=== PATIENT | male | born 1980 | race Caucasian/White ===

== ENCOUNTER 2018-03-09 19:20 | Inpatient (IN) | payer SELFPAY ==
[2018-03-09 21:08] LABS: Absolute Lymphocytes (CBC) 1.9 K/uL (0.7-4.9); Absolute Monocytes 0.9 K/uL (0.1-1.3); Absolute Neutrophil 8.1 K/uL (1.8-8.0); Basophils % 0.3 % (0-1.3); Eosinophils % 1.4 % (0-4.4); Hematocrit 36.8 % (39.6-49.0); MCH 30.9 pg (27.0-35.0); MCV 90.2 fL (80-100); MPV 8.7 fL (7.6-11.3); Monocytes % 7.8 % (3.3-12.3); RBC Red Blood Cell Count 4.08 M/uL (4.33-5.43)
[2018-03-09 21:17] LABS: Protime INR 1.08
--- NOTE | 2018-03-09 21:19 | RAD REPORT ---
EXAM DESCRIPTION: CT - Hand Right W Con - 03/09/2018 9:07 pm CLINICAL HISTORY: eval for foreign body and or abscess Pain and swelling COMPARISON: Hand Right 3 View dated 03/09/2018 FINDINGS: Prominent soft tissue swelling is seen along the ulnar aspect of the hand, particularly al abby the base of the proximal phalanx of the fifth finger. Subcutaneous edema is present in the region . Vague linear mildly radiopaque foreign bodies are seen along the dorsal soft tissues adjacent to th e proximal phalanx of the fifth finger, with extension of the foreign bodies into the fourth webspace . These have the appearance of small pieces of wood. No abscess identified. No fracture or dislocatio n. IMPRESSION: Multiple small linear foreign bodies are present in the region of the fourth webspace an d along the dorsal margin of the base of the fifth proximal phalanx. Adjacent soft tissues are edemat ous and thickened without abscess. All CT scans are performed using dose optimization technique as appropriate and may include automated exposure control or mA/KV adjustment according to patient size.
--- NOTE | 2018-03-09 21:22 | RAD REPORT ---
EXAM DESCRIPTION: RAD - Hand Right 3 View - 03/09/2018 8:43 pm CLINICAL HISTORY: puncture wound base of 5th MCP;Pain;Swelling COMPARISON: None FINDINGS: Soft tissue swelling is seen along the dorsum of the hand at the level of the metacarpals. No fracture or dislocation is seen. No radiopaque foreign body seen.
[2018-03-09] MEDS ORDERED: VANCOMYCIN 1 GM/250 ML BAG ONE (21:31)
[2018-03-09] MEDS ORDERED: PIPER/TAZO/NS 3.375gm 3.375 GM/100 ML BAG ONE (21:31)
--- NOTE | 2018-03-09 21:48 | ER ---
Nurse's Notes [facility] Name: Kamari Carrizales Age: 38 yrs Sex: Male : 1980 Arrival Date: 03/09/2018 Time: 19:23 Bed 15 Private MD: Diagnosis: Foreign bodies of right hand;Right hand cellulitis Presentation: 03/09 19:27 Presenting complaint: Patient states: RIGHT hand pain/swelling, yesterday a chunk of dm5 wood splintered into hand, increasing pain and swelling today. Transition of care: patient was not received from another setting of care. Onset of symptoms was March 07, 2018. Risk Assessment: Do you want to hurt yourself or someone else? Patient reports no desire to harm self or others. Initial Sepsis Screen: Does the patient meet any 2 criteria? No. Patient's initial sepsis screen is negative. Does the patient have a suspected source of infection? No. Patient's initial sepsis screen is negative. Care prior to arrival: None. 19:27 Method Of Arrival: Ambulatory 5 19:27 Acuity: RUDY 3 dm5 Triage Assessment: 19:29 General: Appears uncomfortable, Behavior is calm. Pain: Complains of pain in right hand dm5 Pain currently is 10 out of 10 on a pain scale. Neuro: Level of Consciousness is awake, alert, obeys commands, Oriented to person, place, time, situation. Cardiovascular: Patient's skin is warm and dry. Respiratory: Respiratory effort is even, unlabored, Respiratory pattern is regular, symmetrical. Musculoskeletal: Reports pain in right hand. Injury Description: Foreign body. Historical: - Allergies: 19:29 No Known Allergies; dm5 - Home Meds: 19:29 None [Active]; dm5 - PMHx: 19:29 None; dm5 - PSHx: 19:29 Collar bone, hip and shattered femur; dm5 - Immunization history:: Last tetanus immunization: < 10 years ago. - Social history:: Smoking status: Patient uses tobacco products, smokes one-half pack cigarettes per day. - Ebola Screening: : Patient negative for fever greater than or equal to 101.5 degrees Fahrenheit, and additional compatible Ebola Virus Disease symptoms. - Family history:: not pertinent. - Hospitalizations: : No recent hospitalization is reported. Screenin:01 Abuse screen: Denies threats or abuse. Denies injuries from another. Nutritional bs1 screening: No deficits noted. Tuberculosis screening: No symptoms or risk factors identified. Fall Risk None identified. Assessment: 19:55 General: Appears in no apparent distress. uncomfortable, Behavior is cooperative, bs1 anxious. Pain: Complains of pain in right hand. Neuro: Level of Consciousness is awake, alert, obeys commands, Oriented to person, place, time, situation, Appropriate for age. Cardiovascular: Heart tones S1 S2 present Capillary refill < 3 seconds Patient's skin is warm and dry. Respiratory: Airway is patent Breath sounds are clear bilaterally. GI: No signs and/or symptoms were reported involving the gastrointestinal system. : No signs and/or symptoms were reported regarding the genitourinary system. EENT: No signs and/or symptoms were reported regarding the EENT system. Derm: Skin has skin tears on side on right hand,puncture site from wood Skin is red. Musculoskeletal: Circulation, motion, and sensation intact. Capillary refill < 3 seconds, Range of motion: limited in right hand Swelling present in right hand. 21:30 Reassessment: Patient appears in no apparent distress at this time. Patient and/or bs1 family updated on plan of care and expected duration. Pain level reassessed. Patient is alert, oriented x 3, equal unlabored respirations, skin warm/dry/pink. Informed patient of pending lab work/xrays. 23:00 Reassessment: Patient appears in no apparent distress at this time. Patient and/or bs1 family updated on plan of care and expected duration. Pain level reassessed. Patient is alert, oriented x 3, equal unlabored respirations, skin warm/dry/pink. 03/10 00:00 Reassessment: Report called to 2nd floor. Patient states understanding of instructions. bs1 Vital Signs: 03/09 19:29 BP 93 / 73; Pulse 92; Resp 18; Temp 98.1; Pulse Ox 100% ; Weight 83.91 kg; Height 6 ft. dm5 1 in. (185.42 cm); Pain 10/10; 21:00 BP 111 / 68; Pulse 92; Resp 17; Pulse Ox 100% on R/A; bs1 22:00 BP 115 / 76; Pulse 88; Resp 17; Pulse Ox 99% on R/A; bs1 23:00 BP 110 / 73; Pulse 92; Resp 17; Pulse Ox 100% on R/A; bs1 03/10 00:00 BP 108 / 72; Pulse 88; Resp 16; Temp 98(O); Pulse Ox 99% on R/A; Pain 6/10; bs1 03/09 19:29 Body Mass Index 24.41 (83.91 kg, 185.42 cm) dm5 ED Course: 03/09 19:23 Patient arrived in ED. es 19:29 Triage completed. dm5 19:29 Arm band placed on. dm5 19:50 Yobany Jimenez, RN is Primary Nurse. sr5 19:50 Moshe Michael NP is PHCP. pm1 19:51 Madhu Rojas MD is Attending Physician. pm1 20:02 Madhu Rojas MD is Attending Physician. rn 20:29 Tamika Jalloh RN is Primary Nurse. bs1 20:33 X-ray completed. Portable x-ray completed in exam room. Patient tolerated procedure la2 well. 20:43 XRAY Hand RIGHT 3 View In Process Unspecified. EDMS 20:50 Inserted saline lock: 20 gauge in right antecubital area, using aseptic technique. bs1 Blood collected. by me. Flushed with 10cc NS. 20:50 No provider procedures requiring assistance completed. bs1 21:07 CT completed. Patient tolerated procedure well. Patient moved back from CT. kw1 21:07 Hand Right W Con In Process Unspecified. EDMS 21:15 First set of blood cultures drawn by me, Second set of blood cultures drawn by me. bs1 21:47 Roman Solis MD is Hospitalizing Provider. rn 23:01 Patient has correct armband on for positive identification. Bed in low position. Call bs1 light in reach. Side rails up X 1. Pulse ox on. NIBP on. Warm blanket given. 03/10 00:31 Patient admitted, IV remains in place. intact. bs1 Administered Medications: 03/09 21:44 Drug: Zosyn 3.375 grams Route: IVPB; Infused Over: 60 mins; Site: left antecubital; bs1 03/10 00:32 Follow up: IV Status: Completed infusion bs1 03/09 22:34 Drug: vancoMYCIN 1 grams Route: IVPB; Infused Over: 2 hrs; Site: left antecubital; bs1 03/10 00:32 Follow up: IV Status: Completed infusion bs1 Outcome: 03/09 21:48 Decision to Hospitalize by Provider. rn 03/10 00:31 Admitted to Med/surg accompanied by tech, via wheelchair, room 214, with chart, Report bs1 called to [facility] [place] Condition: stable Instructed on the need for admit, Demonstrated understanding of instructions. 00:35 Patient left the ED. bs1 Signatures: Dispatcher [facility] Poornima Zamora, ES RN dm5 Bridgett Samayoa Roman, MD MD rn Marinas, Patrick, LANDSCAPE GARDENER LANDSCAPE GARDENER pm1 Yobany Jimenez RN RN sr5 Conchita Cobb Kimberly 1 Tamika Jalloh RN RN bs1
--- NOTE | 2018-03-09 21:48 | EDPHYS ---
Physician Documentation [facility] Name: Kamari Carrizales Age: 38 yrs Sex: Male : 1980 Arrival Date: 03/09/2018 Time: 19:23 Bed 15 Private MD: ED Physician Madhu Rojas HPI: 03/09 20:11 This 38 yrs old Male presents to ER via Ambulatory with complaints of Hand rn Injury. 20:11 The patient or guardian reports injury, pain, a puncture wound, swelling, tenderness. rn The complaints affect the right hand diffusely. Context: The problem was sustained outdoors, resulted from a penetrating injury. Onset: The symptoms/episode began/occurred yesterday. Modifying factors: The symptoms are alleviated by nothing, the symptoms are aggravated by movement. Severity of symptoms: At their worst the symptoms were moderate, in the emergency department the symptoms are unchanged. The patient has not experienced similar symptoms in the past. Reports stuck in right hand with rotted wood, yesterday, more swollen today, unsure if got all of wood out, + swelling and redness, hurts to touch and move hand, majority of pain is located at base of 5th MCP and hypothenar eminence. Historical: - Allergies: 19:29 No Known Allergies; dm5 - Home Meds: 19:29 None [Active]; dm5 - PMHx: 19:29 None; dm5 - PSHx: 19:29 Collar bone, hip and shattered femur; dm5 - Immunization history:: Last tetanus immunization: < 10 years ago. - Social history:: Smoking status: Patient uses tobacco products, smokes one-half pack cigarettes per day. - Ebola Screening: : Patient negative for fever greater than or equal to 101.5 degrees Fahrenheit, and additional compatible Ebola Virus Disease symptoms. - Family history:: not pertinent. - Hospitalizations: : No recent hospitalization is reported. ROS: 20:11 Constitutional: Negative for fever, chills, and weight loss, MS/Extremity: + rn penetrating injury right hand with swelling Neuro: Negative for headache, weakness, numbness, tingling, and seizure. Exam: 20:11 Constitutional: This is a well developed, well nourished patient who is awake, alert, rn appears anxious MS/ Extremity: Pulses equal, no cyanosis. Right hand 50% larger than left hand with swelling and warmth of hypothenar eminence and evidence of small puncture wound proximal phalange of 5th digit, old injury to right 5th PIP that results in limited ROM prior to this incident, no obvious fluctuance, siginificant pain with ROM. Minimal pain and warmth at base of right hand, no streaking up right arm. Vital Signs: 19:29 BP 93 / 73; Pulse 92; Resp 18; Temp 98.1; Pulse Ox 100% ; Weight 83.91 kg; Height 6 ft. dm5 1 in. (185.42 cm); Pain 10/10; 21:00 BP 111 / 68; Pulse 92; Resp 17; Pulse Ox 100% on R/A; bs1 22:00 BP 115 / 76; Pulse 88; Resp 17; Pulse Ox 99% on R/A; bs1 23:00 BP 110 / 73; Pulse 92; Resp 17; Pulse Ox 100% on R/A; bs1 03/10 00:00 BP 108 / 72; Pulse 88; Resp 16; Temp 98(O); Pulse Ox 99% on R/A; Pain 6/10; bs1 03/09 19:29 Body Mass Index 24.41 (83.91 kg, 185.42 cm) dm5 MDM: 03/09 19:51 Patient medically screened. pm1 21:44 Differential diagnosis: cellulitis, hand foreign body. Data reviewed: vital signs, rn nurses notes, radiologic studies, CT scan, plain films, and as a result, I will admit patient. Counseling: I had a detailed discussion with the patient and/or guardian regarding: the historical points, exam findings, and any diagnostic results supporting the discharge/admit diagnosis, lab results, radiology results, the need for further work-up and treatment in the hospital. Response to treatment: the patient's symptoms have mildly improved after treatment, and as a result, I will admit patient. Admission orders: after a detailed discussion of the patient's condition and case, the admit orders are written by me. ED course: Spoke with Dr. Del Rio, agrees to see pt in AM, wants pt NPO after midnight, patient angry and does not want to stay, I convinced him to stay. . 03/09 20:09 Order name: CBC with Diff rn 03/09 20:09 Order name: Basic Metabolic Panel rn 03/09 20:09 Order name: Protime (+inr); Complete Time: 21:26 rn 03/09 20:09 Order name: Ptt, Activated; Complete Time: 21:26 rn 03/09 20:09 Order name: Procalcitonin rn 03/09 20:09 Order name: Blood Culture Adult (2) rn 03/09 20:09 Order name: IV Start; Complete Time: 21:38 rn 03/09 20:09 Order name: XRAY Hand RIGHT 3 View; Complete Time: 21:26 rn 03/09 20:10 Order name: CBC with Automated Diff; Complete Time: 21:16 EDMS 03/09 20:14 Order name: Hand Right W Con; Complete Time: 21:26 EDMS Administered Medications: 21:44 Drug: Zosyn 3.375 grams Route: IVPB; Infused Over: 60 mins; Site: left antecubital; bs1 03/10 00:32 Follow up: IV Status: Completed infusion bs1 03/09 22:34 Drug: vancoMYCIN 1 grams Route: IVPB; Infused Over: 2 hrs; Site: left antecubital; bs1 03/10 00:32 Follow up: IV Status: Completed infusion bs1 Disposition: 03/09/18 21:48 Hospitalization ordered by Roman Solis for Inpatient Admission. Preliminary diagnosis are Foreign bodies of right hand, Right hand cellulitis. - Bed requested for Telemetry/MedSurg (Inpatient). - Status is Inpatient Admission. bs1 - Condition is Stable. - Problem is new. - Symptoms have improved. UTI on Admission? No Signatures: Dispatcher [employer] EDMS Sandy Manzo RN RN kl Markwardt, Deana RN RN dm5 Madhu Rojas MD MD rn Marinas, Patrick, DEVELOPMENT MECHANIC DEVELOPMENT MECHANIC pm1 Tamika Jalloh RN RN bs1 Corrections: (The following items were deleted from the chart) 03/09 22:54 21:48 Hospitalization Ordered by Roman Solis MD for Inpatient Admission. Preliminary kl diagnosis is Foreign bodies of right hand; Right hand cellulitis. Bed requested for Telemetry/MedSurg (Inpatient). Status is Inpatient Admission. Condition is Stable. Problem is new. Symptoms have improved. UTI on Admission? No. rn 03/10 00:35 03/09 22:54 03/09/2018 21:48 Hospitalization Ordered by Roman Solis MD for Inpatient bs1 Admission. Preliminary diagnosis is Foreign bodies of right hand; Right hand cellulitis. Bed requested for Telemetry/MedSurg (Inpatient). Status is Inpatient Admission. Condition is Stable. Problem is new. Symptoms have improved. UTI on Admission? No. kl
[2018-03-09 21:55] LABS: BUN Blood Urea Nitrogen 16 mg/dL (7-18); Bicarbonate 33 mmol/L (21-32); Glucose Level 83 mg/dL (74-106); Sodium Level 139 mmol/L (136-145)
--- NOTE | 2018-03-09 23:22 | P.HP ---
Certification for Inpatient Patient admitted to: Inpatient With expected LOS: >2 Midnights Practitioner: I am a practitioner with admitting privileges, knowledge of patient current condition, hospital course, and medical plan of care. Services: Services provided to patient in accordance with Admission requirements found in Title 42 Section 412.3 of the Code of Federal Regulations Patient History Date of Service: 03/09/18 Reason for admission: right hand foreign body History of Present Illness: Mr Carrizales is a 2-year-old male with a pretty denied past medical history except for tobacco abuse, he smoked about 2 packs per day for a long time. The patient had a wound his right hand with a roosted wood, which penetrated treat the 4th and 5th finger web. Subsequently, his right hand become more swollen, painful and warmth. In the ER workup lab work was remarkable for mild leukocytosis 11.0 K, with normal procalcitonin. CT scan of the head was remarkable for multiple wood foreign bodies are located between fourth and fifth finger webs. No history of fever or chills. Allergies No Known Allergies Allergy (Unverified 03/09/18 20:12) Home medications list reviewed: Yes - Social History Smoking Status: Current every day smoker Counseled patient to stop smoking for: less than 10 minutes Smoking therapy provided: Yes Patient receptive to therapy: No CD- Drugs: No Place of Residence: Home Review of Systems 10-point ROS is otherwise unremarkable Physical Examination - Physical Exam General: Alert, In no apparent distress HEENT: Atraumatic, PERRLA, Mucous membr. moist/pink, EOMI, Sclerae nonicteric Neck: Supple, 2+ carotid pulse no bruit, No LAD, Without JVD or thyroid abnormality Respiratory: Clear to auscultation bilaterally, Normal air movement Cardiovascular: Regular rate/rhythm, Normal S1 S2 Gastrointestinal: Normal bowel sounds, No tenderness Musculoskeletal: No tenderness Integumentary: No rashes, Skin lesion (Right hand), Tenderness/swelling (Right hand), Warmth (Right hand) Neurological: Normal gait, Normal speech, Normal strength at 5/5 x4 extr, Normal tone, Normal affect Lymphatics: No axilla or inguinal lymphadenopathy - Studies Laboratory Data (last 24 hrs) 03/09/18 20:50: PT 12.7 H, INR 1.08, APTT 28.1 03/09/18 20:50: Sodium 139, Potassium 3.0 L, BUN 16, Creatinine 0.88, Glucose 83 03/09/18 20:50: WBC 11.0 H, Hgb 12.6 L, Hct 36.8 L, Plt Count 213 Assessment and Plan - Problems (Diagnosis) (1) Tobacco abuse Current Visit: Yes Status: Acute (2) Foreign body Current Visit: Yes Status: Acute - Plan The patient will be admitted to the hospital in order to proceed with foreign body removal. Dr Del Rio with stated patient to OR to more the morning. Will keep NPO start, empiric antibiotic. - Advance Directives Does patient have a Living Will: No Does patient have a Durable POA for Healthcare: No - Code Status/Comfort Care Code Status Assessed: Yes Code Status: Full Code
[2018-03-10] MEDS ORDERED: Levofloxacin 750mg IV 750 MG/150 ML BAG IV SCH (00:39)
[2018-03-10] MEDS ORDERED: IPRATROPIUM BROM 0.5MG/2.5ML NEB PRN (00:39)
[2018-03-10] MEDS ORDERED: ONDANSETRON 4 MG/2 ML VIAL IV PRN (00:39)
[2018-03-10] MEDS ORDERED: ALBUTEROL 2.5 MG/3 ML NEB SOL NEB PRN (00:39)
[2018-03-10] MEDS: NA CHLORIDE 0.9% 1,000 ML IV SCH ×3 (02:15→20:39)
[2018-03-10] MEDS: MORPHINE 2 MG/ML SYR IV PRN ×2 (02:31→20:38)
[2018-03-10 05:37] LABS: Absolute Monocytes 0.9 K/uL (0.1-1.3); Absolute Neutrophil 6.6 K/uL (1.8-8.0); Basophils % 0.5 % (0-1.3); Eosinophils % 1.5 % (0-4.4); Hematocrit 33.1 % (39.6-49.0); Lymphocytes % 20.7 % (15.3-44.8); MCH 31.3 pg (27.0-35.0); MCV 89.1 fL (80-100); MPV 8.9 fL (7.6-11.3); Monocytes % 8.9 % (3.3-12.3); RBC Red Blood Cell Count 3.72 M/uL (4.33-5.43)
[2018-03-10 05:44] LABS: BUN Blood Urea Nitrogen 16 mg/dL (7-18); Bicarbonate 31 mmol/L (21-32); Glucose Level 100 mg/dL (74-106); Magnesium 1.6 mg/dL (1.8-2.4); Potassium 3.1 mmol/L (3.5-5.1); Sodium Level 139 mmol/L (136-145)
[2018-03-10] MEDS ORDERED: MAGNESIUM SULFATE 1 gm IVPB 1 GM/100 ML BAG IV ONE (05:53)
[2018-03-10] MEDS: KCL 20 MEQ/100 mL IVPB 20 MEQ/100 ML BAG IV SCH ×3 (06:31→08:56)
[2018-03-10] MEDS ORDERED: VANCOMYCIN 1.25 GM in NA CHLORIDE 0.9% 500 ML IVPB SCH (09:00)
[2018-03-10] MEDS ORDERED: POTASSIUM 25 MEQ EFFERV TAB PO ONE (13:14)
[2018-03-10] MEDS: PIPER/TAZO/NS 3.375gm 3.375 GM/100 ML BAG IV SCH ×2 (13:42→20:34)
--- NOTE | 2018-03-10 19:13 | PN ---
Date of Progress Note: 03/10/2018 Subjective: The patient is seen and examined. Chart reviewed and case discussed with Dr. Del Rio and RN. The patient seemed to be very somnolent and drowsy. States he has pain in his right hand. Review of Systems: Negative except as above. Medications: List reviewed. Physical Examination: Vital Signs: Temperature 98.2, heart rate 71, blood pressure 104/69, respirations 20, O2 94% on room air. General: Awake, alert, oriented x3, in some mild distress due to pain. Ill-appearing male. CV: S1, S2. No murmurs. Regular rate and rhythm. Peripheral pulses present. Respiratory: Moving air well bilaterally. No wheezing. Gastrointestinal: Abdomen is soft, nontender, nondistended. Positive bowel sounds. Extremities: No clubbing, cyanosis. The patient does have edema of the right hand. Neurologic: Nonfocal. Laboratory Data: Sodium 139, potassium 3.1, chloride 103, CO2 31, BUN 16, creatinine 0.8, glucose 10 0, calcium 8.2, magnesium 1.6. WBC 9.7, H and H 11.6 and 33.1, platelets 187, neutrophils 68.4%. Bl ood cultures pending. CT scan of the hand shows multiple small linear foreign bodies in the region o f the fourth web space along the dorsal margin of the base of the fifth proximal phalanx edema and th ickening without abscess. Hand x-ray personally reviewed shows soft tissue swelling along with dorsu m of the hand, level of metacarpals. No fracture or dislocation. Assessment And Plan: A 38-year-old male with: 1.Right hand foreign body. The patient has received a tetanus shot. We will need surgical treatmen t and removal of foreign bodies. Dr. Del Rio has been consulted. The patient to go for surgery in a.m. Surgery was delayed today due to the patient's change in mental status, appears to be very jaziel nolent. We will obtain UDS. 2.Nicotine dependence with cigarette smoking, counseled. 3.Somnolence, unclear etiology. We will check UDS. No signs of sepsis. White count has normalized . Procalcitonin negative. Plan: Continue with IV antibiotics. We will change Levaquin to Zosyn for anaerobic coverage. Follo w up blood cultures. Anticipate surgery in a.m. SA/VANDANA Voice ID: [id number] Report ID: [id number]
[2018-03-10] MEDS: VANCOMYCIN 1.25 GM in NA CHLORIDE 0.9% 250 ML IVPB SCH (20:34)
[2018-03-10 23:52] LABS: Barbiturates NEGATIVE (NEGATIVE); Benzodiazepines NEGATIVE (NEGATIVE); Cocaine NEGATIVE (NEGATIVE); METHAMPHETAM POSITIVE (NEGATIVE); Methadone NEGATIVE (NEGATIVE); Opiates NEGATIVE (NEGATIVE); Phencyclidine NEGATIVE (NEGATIVE); THC Cannibis NEGATIVE (NEGATIVE)
[2018-03-11] MEDS: PIPER/TAZO/NS 3.375gm 3.375 GM/100 ML BAG IV SCH ×3 (05:28→20:34)
[2018-03-11] MEDS: NA CHLORIDE 0.9% 1,000 ML IV SCH ×2 (05:49→16:39)
[2018-03-11] MEDS: VANCOMYCIN 1.25 GM in NA CHLORIDE 0.9% 250 ML IVPB SCH (08:38)
[2018-03-11] MEDS ORDERED: MIDAZOLAM HCL 2 MG/2 ML INJ ONE (09:07)
[2018-03-11] MEDS ORDERED: PROPOFOL 200 MG/20 ML VIAL IV ONE (09:07)
[2018-03-11] MEDS ORDERED: Ringers Lactate 1,000 ML IV ONE (09:07)
[2018-03-11] MEDS ORDERED: KETOROLAC 30 MG/ML INJ ONE (09:07)
[2018-03-11] MEDS ORDERED: FENTANYL CITR 100 MCG/2 ML ONE (09:07)
[2018-03-11] MEDS ORDERED: ONDANSETRON HCL 40 MG/20 ML VIAL ONE (10:01)
[2018-03-11 10:15] LABS: BUN Blood Urea Nitrogen 10 mg/dL (7-18); Bicarbonate 31 mmol/L (21-32); Glucose Level 97 mg/dL (74-106); Magnesium 1.9 mg/dL (1.8-2.4); Potassium 3.5 mmol/L (3.5-5.1); Sodium Level 136 mmol/L (136-145)
[2018-03-11 10:17] LABS: Absolute Lymphocytes (CBC) 1.4 K/uL (0.7-4.9); Absolute Monocytes 0.7 K/uL (0.1-1.3); Absolute Neutrophil 7.8 K/uL (1.8-8.0); Basophils % 0.4 % (0-1.3); Hematocrit 33.4 % (39.6-49.0); Lymphocytes % 13.7 % (15.3-44.8); MCH 30.8 pg (27.0-35.0); MPV 8.9 fL (7.6-11.3); Monocytes % 6.9 % (3.3-12.3); RBC Red Blood Cell Count 3.71 M/uL (4.33-5.43)
[2018-03-11] MEDS: VANCOMYCIN 1.5 GM in NA CHLORIDE 0.9% 500 ML IVPB SCH (20:34)
--- NOTE | 2018-03-11 20:46 | PN ---
Date of Progress Note: 03/11/2018 Subjective: Chart reviewed and case discussed with RN. The patient did well postoperatively, went f or surgery by Dr. Del Rio for his hand. Review of Systems: Negative except as above. Medications: List reviewed. Objective: Vital Signs: Temperature 97.9, heart rate 62, blood pressure 110/67, respirations 18, O2 96% on room air. General: Awake, alert, oriented x3. Some mild distress. CV: S1, S2. No murmurs. Respiratory: Moving air well bilaterally Gastrointestinal: Abdomen is soft, nontender, nondistended . Positive bowel sounds. Extremities: No clubbing, cyanosis. Right hand swelling. Skin: Right hand bandaged. Neurologic: Nonfocal. Sensation intact to light touch. Laboratory Data: Sodium 136, potassium 3.5, chloride 100, CO2 31, BUN 10, creatinine 0.7, glucose 97 , calcium 8.4, magnesium 1.9. WBC 10, H and H 11.4, 33.4, platelets 195, neutrophils 78%. UDS posit ross for amphetamines. Blood cultures pending. Blood cultures, no growth to date. Wound cultures, p ending. Assessment And Plan: A 38-year-old male with: 1.Right hand foreign body, status post surgical removal of foreign body. Appreciate Dr. Del Rio's input. We will continue with IV antibiotics and follow up on cultures. Blood cultures, no growth t o date. Wound cultures, pending. 2.Nicotine dependence with cigarette smoking. Counseled. 3.Amphetamine abuse, counseled. Please note that the patient stated that he wished to leave. I exp lained to him that he needs to continue with IV antibiotics and he needs to have wound closure on Vicky rsday by Dr. Del Rio. He is to be observed in the hospital setting as his cultures are pending at this time. He mentioned that he is unable to pay for his daughter's baby-sitting and I explained to him that he may need to make other arrangements as leaving the hospital against medical advice is obv iously not advised. It will result in worsening condition of his hand as this is his dominant hand. If he leaves without treatment, he may not be able to heal properly and may result in permanent nikunj ge or loss to the function of his hand, may even result in sepsis and possibly . He voiced unde rstanding and at this point, agrees to stay in the hospital. ERNESTINE Voice ID: [id number] Report ID: [id number]
--- NOTE | 2018-03-11 21:47 | OP ---
Surgeon: Darion Del Rio MD Preoperative Diagnosis: Infected right hand with foreign body. Postoperative Diagnosis: Infected right hand with foreign body. Procedure Performed: Debridement of skin and subcutaneous tissue, incision and drainage of abscess, removal of foreign bodies. Anesthesia: General. Procedure In Detail: After satisfactory induction of general anesthesia, the right arm was prepped w ith Betadine scrub, Betadine paint, dry sterile drapes applied in usual manner. The arm was elevated and exsanguinated with an Esmarch. Tourniquet was inflated to 250 mmHg. The hand was placed on Rot jonathon table. Elliptical incision was made over the metacarpal head on the ulnar aspect of the 5th met acarpal. Pus was encountered. Cultures were taken of the pus. Then, a zigzag incision was made ove r the dorsum extending to the web between the fourth and fifth digits. Foreign bodies were encounter ed which were brown black wood, multiple fragments. Total weight of these fragments was about 5 g. The wounds were then jet lavage irrigated with 3 L of dilute Betadine solution. Tourniquet released. Electrocautery was used for hemostasis. Wound packed with Nu Gauze quarter-inch, 2-inch Apple and Kerlix. The patient tolerated the procedure well and returned to Recovery. FABIAN/VANDANA Voice ID: [id number] Report ID: [id number]
[2018-03-12] MEDS: NA CHLORIDE 0.9% 1,000 ML IV SCH (02:39)
[2018-03-12] MEDS: PIPER/TAZO/NS 3.375gm 3.375 GM/100 ML BAG IV SCH ×3 (05:25→20:55)
[2018-03-12] MEDS ORDERED: POTASSIUM CL SA 10 MEQ TAB PO ONE (09:00)
[2018-03-12] MEDS: VANCOMYCIN 1.5 GM in NA CHLORIDE 0.9% 500 ML IVPB SCH ×2 (09:55→20:54)
--- NOTE | 2018-03-12 18:16 | PN ---
Date of Progress Note: 03/12/2018 Subjective: The patient is seen and examined. Chart reviewed and case discussed with RN. The patie nt doing well. Wants to go downstairs and smoke. I counseled the patient extensively regarding smok ing cessation. He does not believe that there is any effect of smoking to his healing or his surgery . Review of Systems: Negative except as above. Medications: List reviewed. Physical Examination: Vital Signs: Temperature 97.6, heart rate 84, blood pressure 108/61, respirations 18, O2 96% on room air. General: Awake, alert, oriented x3, not in any acute distress. CV: S1, S2. No murmurs. Regular rate and rhythm. Peripheral pulses present. Respiratory: Moving air well bilaterally. No wheezing. Gastrointestinal: Abdomen is soft, nontender, nondistended. Positive bowel sounds. Extremities: No clubbing, cyanosis, edema. Neuro: Nonfocal. Laboratory Data: Microbiology, blood cultures no growth to date. Wound cultures pending. Assessment And Plan: A 38-year-old male with: 1.Right hand foreign body, status post incision and drainage and removal of foreign bodies. The pat ient is going back for closure tomorrow by Dr. Del Rio. 2.Cellulitis of the right hand. Continue antibiotics. Blood cultures negative. Wound cultures pen ding. 3.Nicotine dependence with cigarette smoking. The patient was counseled extensively. He does not u nderstand, not ready to quit, wants to go downstairs and smoke. 4.Amphetamine abuse, counseled. Plan: Continue antibiotics. Return to OR tomorrow. /MODL Voice ID: [id number] Report ID: [id number]
[2018-03-12] MEDS ORDERED: CODEINE 30MG/APAP 300MG TAB PO PRN (21:14)
[2018-03-12] MEDS: MORPHINE 2 MG/ML SYR IV PRN (22:46)
[2018-03-13] MEDS: PIPER/TAZO/NS 3.375gm 3.375 GM/100 ML BAG IV SCH (05:59)
[2018-03-13] MEDS ORDERED: PROPOFOL 200 MG/20 ML VIAL IV ONE (08:46)
[2018-03-13] MEDS ORDERED: FENTANYL CITR 100 MCG/2 ML ONE (08:47)
[2018-03-13] MEDS ORDERED: MIDAZOLAM HCL 2 MG/2 ML INJ ONE (08:47)
[2018-03-13] MEDS ORDERED: ONDANSETRON HCL 40 MG/20 ML VIAL ONE (08:47)
[2018-03-13] MEDS: VANCOMYCIN 1.5 GM in NA CHLORIDE 0.9% 500 ML IVPB SCH (09:00)
--- NOTE | 2018-03-14 07:26 | DS ---
Date of Discharge: 03/13/2018 Consultants: Dr. Del Rio with Plastic Surgery. Procedures: On 03/11/2018, debridement of skin and subcutaneous tissue, incision and drainage of abs cess, removal of foreign bodies of right hand. Admitting Diagnoses: 1.Foreign body in the right hand. 2.Cellulitis and infection of the right hand secondary to foreign body. 3.Nicotine dependence with cigarette smoking. Discharge Diagnoses: 1.Right hand foreign body, status post incision and drainage and removal of foreign bodies. 2.Cellulitis of the right hand. 3.Nicotine dependence with cigarette smoking, counseled. 4.Amphetamine abuse, counseled. Hospital Course: The patient is a 38-year-old male with no significant past medical history, comes i nto the hospital with foreign body doing work related accident. The patient came in for further eval uation and treatment. He was started on IV antibiotics. He did have some mild leukocytosis. CT sca n of the hand was done which showed multiple wood foreign bodies between the fourth and fifth finger webs. Dr. Del Rio was consulted and the patient was taken to the OR for above-mentioned procedure. The patient did well postoperatively as mentioned previously in progress note. He did wish to leav e after the surgery, however, he was counseled. He understood the risks involved with leaving agains t medical advice and decided to stay. The patient did have some somnolence and some confusion likely related to his methamphetamine abuse. The patient was counseled regarding amphetamine abuse as well as his smoking. The patient regardless continued to go downstairs to smoke despite knowing that thi s affects the healing and may worsen his infection. The patient was then taken back to the OR on for closure of the wound. His wound cultures grew out Staph aureus which was methicillin sen sitive. The patient was then cleared for discharge from Dr. Del Rio's standpoint. His blood cultu res remained negative. The patient was discharged in a stable condition. Wound care per Dr. Del Rio. Followup: Follow up with surgeon in 7 to 10 days for wound check. To establish care with primary ca re physician in 1 to 2 weeks. Return to ER for worsening condition. Diet: Regular. Activity: No driving or operating heavy machinery while on narcotics. Total time spent discharging the patient was 35 minutes. Physical Examination: General: Awake, alert, oriented x3. No acute distress. CV: S1, S2. No murmurs. Regular rate and rhythm. Peripheral pulses present. Respiratory: Moving air well bilaterally. Abdomen: Soft, nontender, nondistended. Positive bowel sounds. Extremities: No clubbing, cyanosis. Some mild edema in the right hand. Skin: Right hand bandaged. No drainage. Clean, dry, intact. Neurologic: Nonfocal. Sensation intact to light touch. SA/MODL Voice ID: [id number] Report ID: [id number]
--- NOTE | 2018-03-14 08:42 | OP ---
Surgeon: Darion Del Rio MD Preoperative Diagnosis: Open wound of the right hand. Postoperative Diagnosis: Open wound of the right hand. Procedure Performed: Debridement of skin and subcutaneous tissue, flap closure. Anesthesia: General. Procedure In Detail: After satisfactory induction of general anesthesia, the right hand was prepped with Betadine scrub, Betadine paint, dry sterile drapes applied in the usual manner. The arm was garry vated and exsanguinated with an Esmarch. Tourniquet inflated to 250 mmHg. Hand placed on a [place] table. Tenotomy scissors were used to debride skin and subcu tissue as needed. The wound was curett ed then jet lavaged, irrigated with 3 L of dilute Betadine solution. Tourniquet released. Electroca utery used for hemostasis. Flaps were undermined, advanced closure with 4-0 Prolene simple sutures a nd vertical mattresses. Dressing with Xeroform, 2-inch, Apple, Kerlix. The patient tolerated the pr ocedure well and returned to Recovery. FABIAN/VANDANA Voice ID: [id number] Report ID: [id number]
== END 2018-03-13 11:40 | disposition home or self-care (01) | DRG 580 ==
LOC: ER 19:20 → ERHOLD 22:36 → 2ND 03-10 00:13
PROVIDERS: ADMIT Internal Medicine; ATTEND Family Medicine
PROC: 0JCJ0ZZ Extirpation of Matter from Right Hand Subcutaneous Tissue and Fascia, Open Approach (ICD-10-PCS; principal; 2018-03-11 09:30)
PROC: 0JQJ0ZZ Repair Right Hand Subcutaneous Tissue and Fascia, Open Approach (ICD-10-PCS; 2018-03-13)
DX: S60.551A Superficial foreign body of right hand, initial encounter (principal); L02.511 Cutaneous abscess of right hand; L03.113 Cellulitis of right upper limb; R40.0 Somnolence; F15.10 Other stimulant abuse, uncomplicated; F17.210 Nicotine dependence, cigarettes, uncomplicated
CPT/HCPCS: 36415; 73201; 80048; 80202; 80307; 83735; 84132; 84145; 85025; 85610; 85730; 87040; 87070; 87075; 87077; 87186; 87205; 88304; 96365; 96366; 99285; J2250; J2270; J2405; J2543; J3010; J3370; J3475; J7030

== ENCOUNTER 2018-03-22 14:35 | Emergency (ER) | payer SELFPAY ==
--- NOTE | 2018-03-22 15:33 | ER ---
Nurse's Notes [facility] Name: Kamari Carrizales Age: 38 yrs Sex: Male : 1980 Arrival Date: 03/22/2018 Time: 14:37 Bed 28 Private MD: Darion Del Rio Diagnosis: Encounter for change or removal of surgical wound dressing Presentation: 03/22 14:51 Presenting complaint: Patient states: Patient had surgery on his right pinky on February aj1 and by Dr. Del Rio, he was suppose to follow up but he was unable to get a ride to his office. Redness and swelling noted to right pinky. Patient states that it looks like there's a piece of wood coming out of the wound. Denies fever. Transition of care: patient was not received from another setting of care. Onset of symptoms was March 22, 2018. Risk Assessment: Do you want to hurt yourself or someone else? Patient reports no desire to harm self or others. Initial Sepsis Screen: Does the patient meet any 2 criteria? HR > 90 bpm. No. Patient's initial sepsis screen is negative. Does the patient have a suspected source of infection? Yes: Skin breakdown/wound. Care prior to arrival: None. 14:51 Method Of Arrival: Ambulatory aj1 14:51 Acuity: RUDY 3 aj1 Triage Assessment: 14:54 General: Appears in no apparent distress. uncomfortable, Behavior is calm, cooperative, aj1 appropriate for age. Pain: Denies pain. Neuro: Level of Consciousness is awake, alert, obeys commands. Cardiovascular: Patient's skin is warm and dry. Respiratory: Airway is patent Respiratory effort is even, unlabored, Respiratory pattern is regular, symmetrical. Historical: - Allergies: 14:54 No Known Allergies; aj1 - Home Meds: 14:54 None [Active]; aj1 - PMHx: 14:54 None; aj1 - Immunization history:: Flu vaccine is not up to date. - Social history:: Smoking status: Patient uses tobacco products, smokes two packs cigarettes per day. - Ebola Screening: : Patient denies travel to an Ebola-affected area in the 21 days before illness onset. Screenin:10 Abuse screen: Denies threats or abuse. Denies injuries from another. Nutritional rv screening: No deficits noted. Tuberculosis screening: No symptoms or risk factors identified. Fall Risk None identified. Assessment: 15:07 General: Appears in no apparent distress. comfortable, Behavior is calm, cooperative. rv Pain: Denies pain. Neuro: Level of Consciousness is awake, alert, obeys commands, Oriented to person, place, time, situation. Cardiovascular: Capillary refill < 3 seconds. Respiratory: Airway is patent. GI: No signs and/or symptoms were reported involving the gastrointestinal system. : No signs and/or symptoms were reported regarding the genitourinary system. EENT: No signs and/or symptoms were reported regarding the EENT system. Derm: Skin SWELLING Skin is red, Wound noted dorsal aspect of proximal phalanx of right little finger Wound is POST OP MAR 03, 2018. Vital Signs: 14:54 BP 105 / 70; Pulse 112; Resp 20; Temp 97.5(TE); Pulse Ox 99% on R/A; Weight 79.38 kg aj1 (R); Height 6 ft. 0 in. (182.88 cm) (R); Pain 0/10; 15:10 BP 101 / 68; Pulse 99; Pulse Ox 97% ; rv 14:54 Body Mass Index 23.73 (79.38 kg, 182.88 cm) aj1 ED Course: 14:37 Patient arrived in ED. sb2 14:37 Darion Del Rio MD is Private Physician. sb2 14:54 Triage completed. aj1 14:54 Arm band placed on Patient placed in an exam room. aj1 15:10 Patient has correct armband on for positive identification. Bed in low position. Call rv light in reach. Side rails up X 1. Adult w/ patient. Pulse ox on. NIBP on. 15:12 Thomas Mcintyre PA is PHCP. cp 15:12 Madhu Rojas MD is Attending Physician. cp 15:31 Darion Del Rio MD is Referral Physician. cp 15:38 No provider procedures requiring assistance completed. Patient did not have IV access rv during this emergency room visit. Administered Medications: No medications were administered Outcome: 15:32 Discharge ordered by MD. cp 15:38 Discharged to home ambulatory. rv 15:38 Condition: good 15:38 Discharge instructions given to patient, family, Instructed on discharge instructions, follow up and referral plans. wound care, Demonstrated understanding of instructions, follow-up care, wound care. 15:39 Patient left the ED. rv Signatures: Jennifer Landeros RN RN aj1 Thomas Mcintyre PA PA cp Billeau, Sheri sb2 Lucas Clement RN RN rv
--- NOTE | 2018-03-22 15:33 | EDPHYS ---
Physician Documentation [facility] Name: Kamari Carrizales Age: 38 yrs Sex: Male : 1980 Arrival Date: 03/22/2018 Time: 14:37 Bed 28 Private MD: Darion Del Rio ED Physician Madhu Rojas HPI: 03/22 15:24 This 38 yrs old Male presents to ER via Ambulatory with complaints of Wound cp Check. 15:24 Patient presents to ED for recheck of: laceration. The affected area is on the dorsal cp aspect of proximal phalanx of right little finger. Previous treatment: the care was rendered at the patient's primary care provider's office, Treatment type: The patient's original treatment included sutures, Outpatient prescription(s): The patient was given prescription(s) for Tylenol #3, oral antibiotics. Patient reports he has not been able to f/u with DR Del Rio due to lack of transportation. Reports having approximately 8 days remaining of oral antibiotics and tylenol #3 for pain. Historical: - Allergies: 14:54 No Known Allergies; aj1 - Home Meds: 14:54 None [Active]; aj1 - PMHx: 14:54 None; aj1 - Immunization history:: Flu vaccine is not up to date. - Social history:: Smoking status: Patient uses tobacco products, smokes two packs cigarettes per day. - Ebola Screening: : Patient denies travel to an Ebola-affected area in the 21 days before illness onset. ROS: 15:29 Constitutional: Negative for body aches, chills, fever, poor PO intake. cp 15:29 Skin: Positive for of the dorsal aspect of proximal phalanx of right little finger, sutured wound. 15:29 All other systems are negative. Exam: 15:31 Constitutional: This is a well developed, well nourished patient who is awake, alert, cp and in no acute distress. 15:31 Skin: Wound recheck: Suture laceration closure: no drainage, mild erythema, mild swelling, moderate dehiscence, right small finger contracted at PIP joint. Vital Signs: 14:54 BP 105 / 70; Pulse 112; Resp 20; Temp 97.5(TE); Pulse Ox 99% on R/A; Weight 79.38 kg aj1 (R); Height 6 ft. 0 in. (182.88 cm) (R); Pain 0/10; 15:10 BP 101 / 68; Pulse 99; Pulse Ox 97% ; rv 14:54 Body Mass Index 23.73 (79.38 kg, 182.88 cm) aj1 MDM: 15:12 Patient medically screened. cp 15:30 Differential diagnosis: cellulitis, tenosynovitis, abscess. cp 15:31 Data reviewed: vital signs, nurses notes, and as a result, I will discharge patient. cp 15:31 Counseling: I had a detailed discussion with the patient and/or guardian regarding: the cp historical points, exam findings, and any diagnostic results supporting the discharge/admit diagnosis, the need for outpatient follow up, for definitive care, a hand specialist. Administered Medications: No medications were administered Disposition: 16:00 Chart complete. cp 18:23 Co-signature as Attending Physician, Madhu Rojas MD. rn Disposition: 03/22/18 15:32 Discharged to Home. Impression: Encounter for change or removal of surgical wound dressing. - Condition is Stable. - Discharge Instructions: How to Change Your Dressing, Incision Care, Adult, Wound Care. - Medication Reconciliation Form, Thank You Letter, Antibiotic Education, Prescription Opioid Use form. - Follow up: Darion Del Rio MD; When: 1 - 2 days; Reason: Wound Recheck. - Problem is an ongoing problem. - Symptoms have improved. Signatures: Jennifer Landeros RN RN aj1 Madhu Rojas MD MD rn Page, Corey, PA PA cp Lucas Clement, RN RN rv Corrections: (The following items were deleted from the chart) 15:39 15:32 03/22/2018 15:32 Discharged to Home. Impression: Encounter for change or removal rv of surgical wound dressing. Condition is Stable. Forms are Medication Reconciliation Form, Thank You Letter, Antibiotic Education, Prescription Opioid Use. Follow up: Darion Del Rio; When: 1 - 2 days; Reason: Wound Recheck. Problem is an ongoing problem. Symptoms have improved. cp
== END 2018-03-22 15:39 | disposition home or self-care (01) ==
LOC: ER 14:35
DX: Z48.01 Encounter for change or removal of surgical wound dressing (principal); F17.210 Nicotine dependence, cigarettes, uncomplicated
CPT/HCPCS: 99283